=== PATIENT | female | born 1930 | race Caucasian/White ===

== ENCOUNTER → 2017-03-20 | Outpatient (CLI) | payer MEDICARE, BC ==
--- NOTE | 2017-03-22 17:31 | MR ---
EXAM DATE: 03/20/17 PATIENT'S AGE: 86 Patient: EMMANUEL PITTMAN Facility: [place], [place] Site . Site : [id number] Study: MRI Spine Lumbar [id number]/28/2017 6:06:18 PM Ordering Physician: Chidi Casas Final Report: Indication: Low back pain. Comparison: None. Technique: Sagittal T1, T2, and STIR sequences. Axial T1 and T2 weighted sequences. Findings: Marked lumbar scoliotic curvature convex the left with apex at L2-3. In sagittal plane, grossly normal vertebral body alignment. No acute fractures. No vertebral body loss of height. No spondylolisthesis. No ligamentous injury. No suspicious osseous lesions. Normal conus terminates at L2. Advanced lumbar spondylosis with multilevel disc degeneration and facet arthropathy. T10-11: Disc degeneration with no spinal canal or neural foraminal narrowing. T11-12: Disc degeneration with no spinal canal or neural foraminal narrowing. T12-L1: Disk degeneration with diffuse disc bulge and endplate osteophytic ridging. No narrowing of spinal canal. No neural foraminal narrowing. Mild bilateral facet arthropathy. L1-2: Disc degeneration with diffuse disc bulge and endplate osteophytic ridging eccentric to the right. No narrowing of spinal canal. No neural foraminal narrowing. Mild bilateral facet arthropathy. L2-3: Disc degeneration with diffuse disc bulge and endplate osteophytic ridging asymmetric to the right. No narrowing of spinal canal. No neural foraminal narrowing. Moderate bilateral facet arthropathy. At L3-4: Disc degeneration with loss disc height. Diffuse disc bulge and endplate osteophytic ridging. Mild narrowing of spinal canal. No narrowing of the left neural foramen. Moderate narrowing of the right neural foramen. Possible impingement of the exiting right L3 nerve root. Moderate bilateral facet arthropathy. L4-5: Disc degeneration with loss disc height. Diffuse disc bulge and endplate osteophytic ridging. Mild narrowing of spinal canal. Mild narrowing of the bilateral neural foramina. Moderate bilateral facet arthropathy. L5-S1: Disk degeneration with diffuse disc bulge and endplate osteophytic ridging eccentric to the left. No narrowing of the spinal canal. No abraham impingement of the traversing S1 nerve roots. Combined with facet arthropathy there is severe narrowing of the left neural foramen. Impingement of the exiting left L5 nerve root. No narrowing of the right neural foramen. Mild right and severe left facet arthropathy. Degenerative changes of the SI joints. Normal perispinal soft tissues. Impression: 1. Lumbar scoliotic curvature convex to the left. In sagittal plane, normal alignment. No fractures. No spondylolisthesis. 2. Advanced lumbar spondylosis. 3. At L3-4, mild narrowing of the spinal canal. Moderate narrowing of the right neural foramen 4. At L4-5, mild narrowing of spinal canal and bilateral neural foraminal 5. At L5-S1, severe narrowing of the left neural foramen with impingement of the exiting left L5 nerve Dictated by Alfonso Jones MD @ Mar 21 2017 8:30AM (Electronic Signature) Report Signed by Proxy. MARGARITA
== END ==
LOC: MW.MRI 14:03
PROVIDERS: ATTEND Emergency Medicine
DX: M54.5 Low back pain (principal)
CPT/HCPCS: 72148; 72148-26